=== PATIENT | male | born 1995 | race Caucasian/White ===

== ENCOUNTER 2023-09-16 18:19 | Emergency (ER) | payer SELFPAY ==
--- OUTSIDE RECORDS SUMMARY | 2023-09-16 18:22 | XMS REPORT | Continuity of Care Document ---
:1995 Author Organization [facility] t Address [address] [place] [address] [place] [id number] Care Team Providers Name Role Phone Alyse Davis DO Attending Clinician Louise Diaz MD Attending Clinician Payers Payer Name Policy Type Policy Number Effective Date Expiration Date S [facility] [id number] 2014 PPO 00:00:00 Problems Condition Condition Condition Status Onset Resolution Last Treating Co mments Source Name Details Category Date Date Treatment Clinician Date New onset New onset Disease Active Uni vers of [place] 10-22 [place] [address] [place] [address] Allergies, Adverse Reactions, Alerts Allergy Allergy Status Severity Reaction(s) Onset Inactive Treating Comm ents Source Name Type Date Date Clinician NO KNOWN Drug Active Univers ALLERGIE Class ity of S [facility] Social History Social Habit Start Date Stop Date Quantity Comments Source History of Cigarette Smoker Universi ty of tobacco use [facility] Exposure to Yes University of SARS-CoV-2 [facility] (event) [place] Alcohol intake 2018-10-28 2018-10-28 Current drinker Unive rsity of 00:00:00 00:00:00 of alcohol [facility] (finding) [place] Tobacco use and 2018-10-28 2018-10-28 Current user Univers ity of exposure 00:00:00 00:00:00 [facility] Sex [birth year] Universit y of 00:00:00 00:00:00 [facility] Smoking Status Start Date Stop Date Source Current every day smoker 2018-10-28 00:00:00 Uni versity of [facility] Medications Ordered Filled Start Stop Current Ordering Indication Dosage Frequency Signature Comments Components Source Medication Medication Date Date Medication? Clinician (SIG) Name Name calcium 2020- No 500mg 500 mg, Unive rs carbonate 06-03 Oral, ity of (OSCAL-500) 23:00: 22:06 [place] 500 [place] :00 dose, Sat Medi gerber mg 06/03/21 at Branch 1800, MISAEL magnesium 2020- No 2g 2 g, IV Univ ers sulfate in 06-03 Piggyback, it y of water 2 23:00: 23:43 ONCE, 1 [place] gram/50 mL 00 :00 dose, Sat Medi gerber (4 %) 06/03/21 at Branch infusion 2 1800, g Routine ketorolac 2020- No 15mg 15 mg, Unive rs (TORADOL) 06-03 Slow IV ity of injection 21:45: 20:37 Push, [place] 15 mg 00 :00 ONCE, 1 Medical dose, Sat Branch 06/03/21 at 1645, MISAEL
Fa culty member approving Restricted medication : ALYSE DAVIS LORazepam 2020- No 1mg 1 mg, Slow U nivers (ATIVAN) 06-03 IV Push, ity of injection 1 21:30: 20:37 [place]CE[place] 1 [place] mg 00 :[place] dose, Sat Medical 06/03/21 at Branch 1630, STAT ibuprofen Yes [id number] 800mg Take 1 Univers 800 mg 1-15 [id number] tablet by ity of tablet 00:00: mouth [place] 00 every 6 Medical (six) Branch hours as needed (pain). acetaminoph Yes [id number] 1{tbl} Take 1 Univers en-codeine 1-15 [id number] tablet by it y of 300-30 mg 00:00: mouth [place] tablet 00 every 4 Medical (four) Branch hours as needed (pain). ibuprofen Yes [id number] 800mg Take 1 Univers 800 mg 1-15 [id number] tablet by ity of tablet 00:00: mouth [place] 00 every 6 Medical (six) Branch hours as needed (pain). acetaminoph Yes [id number] 1{tbl} Take 1 Univers en-codeine 1-15 [id number] tablet by it y of 300-30 mg 00:00: mouth [place] tablet 00 every 4 Medical (four) Branch hours as needed (pain). AMITRIPTYLI Yes [id number] 10mg TAKE 1 Univers [place] 10 mg 8-06 TABLET BY ity of tablet 00:00: MOUTH AT [place] 00 BEDTIME. Medical Branch AMITRIPTYLI Yes [id number] 10mg TAKE 1 Univers [place] 10 mg 8-06 TABLET BY ity of tablet 00:00: MOUTH AT [place] 00 BEDTIME. [facility] Vital Signs Vital Name Observation Time Observation Value Comments Source Systolic blood 2021-06-03 23:43:05 118 mm[Hg] Univer sity of pressure [facility] Diastolic blood 2021-06-03 23:43:05 82 mm[facility]Hg] [facility] 2021-06-03 23:43:05 65 /min [facility] Respiratory rate 2021-06-03 23:43:05 16 /min [facility] Oxygen saturation in 2021-06-03 23:43:05 100 /min [facility] Arterial blood by [facility] [place] [facility] Pulse oximetry [place] Body temperature 2021-06-03 19:57:00 36.94 [facility] Body weight 2021-06-03 19:57:00 68.04 kg [facility] BMI 2021-06-03 19:57:00 22.15 kg/m2 [facility] Procedures Procedure Date / Time Performed Performing Clinician Sourc e XR CHEST 2 VW 2021-06-03 20:29:52 Alyse Davis [facility] CONSENT/REFUSAL FOR 2021-06-03 20:02:19 [facility] AND Name [facility] Branch TREATMENT NOTICE OF PRIVACY 2021-06-03 20:01:57 Doctor Unassigned, No Univ [facility] PRACTICES Name Medical [place] Encounters Start End Encounter Admission Attending Care Care Encounter Source Date/Time Date/Time Type Type Clinicians Facility Department ID 2021-08-14 Emergency [facility] [id number] Univers 17:09:23 ity of [facility] 2021-08-11 Emergency [facility] [id number] Univers 08:49:29 it of [facility] 2021-06-03 2021-06-03 Emergency Susan, [facility] [id number] Univers 14:58:00 18:50:00 Alyse Reese [id number] i ty of [place] [id number] [facility] [id number] [place] [id number] Branch 2020-05-08 2020-05-08 Emergency Emily, [facility] [id number] Univers 01:02:02 01:05:00 Louise Reese [id number] ity of [place] [id number] [facility] [id number] [place] [id number] Branch Results Test Description Test Time Test Comments Results Result Sour e Comments XR CHEST 2 VW 2021-05-15 No evidence of acute University of cardiopulmonary [place] Med ical 22:01:45 disease. Preliminary Bran ch Report Dictated by Resident: Franki Landaverde MD., have reviewed this study and agree withthe above report.EXAM: XR CHEST 2 06/03/2021 3:21 PM HISTORY: 26 years-old Male with sob, cp COMPARISON: CR,09/08/2015 TECHNIQUE: PA and lateral chest radiograph. FINDINGS: The lungs are hyperinflated but clear. There is no focal consolidation,pleural effusion or pneumothorax. The cardiomediastinal silhouette is normal in size. No acute osseous abnormality. [facility], Radiant Results Inft User - 06/03/2021 5:02 PM CDT EXAM: XR CHEST 2 06/03/2021 3:21 PMHISTORY: 26 years-old Male with sob, cp COMPARISON: CR,09/08/2015 TECHNIQUE: PA and lateral chest radiograph.FINDINGS:T he lungs are hyperinflated but clear. There is no focal consolidation,pleural effusion or pneumothorax.The cardiomediastinal silhouette is normal in size.No acute osseous abnormality.IMPRESSIO NNo evidence of acute cardiopulmonary disease.Preliminary Report Dictated by Resident: Franki Levi MD., have reviewed this study and agree withthe above report.
--- NOTE | 2023-09-16 19:26 | ER ---
Nurse's Notes [facility] Name: Nitin Block Age: 28 yrs Sex: Male : 1995 Arrival Date: 09/16/2023 Time: 18:19 Bed Waiting Private MD: Diagnosis: Presentation: 09/16 19:24 Note pt left prior to triage. provider notified. lg3 ED Course: 18:21 Patient arrived in ED. mg5 18:44 Kavitha Messina FNP-C [facility] snw 18:44 Jim Ovalle MD is Attending Physician. snw Administered Medications: No medications were administered Outcome: 19:25 Patient left the ED. lg3 19:37 Patient left the ED. snw Signatures: Kavitha Messina FNP-C FNP-Csnw Renata Rdz, RN RN lg3 Otilia Han mg5
[2023-09-16 19:34] LABS: SARS-CoV-2 Antigen Rapid Res Negative (Negative)
--- NOTE | 2023-09-16 19:38 | EDPHYS ---
Physician Documentation [facility] Name: Nitin Block Age: 28 yrs Sex: Male : 1995 Arrival Date: 09/16/2023 Time: 18:19 Bed Waiting Private MD: ED Physician MDM: 09/16 19:37 Medical screening is not applicable. snw 09/16 18:41 Order name: SARS RAPID; Complete Time: 19:37 sp3 09/16 18:41 Order name: Flu; Complete Time: 19:37 sp3 Administered Medications: No medications were administered Disposition Summary: 09/16/23 19:25 Eloped Notes: Disposition: Before Triage lg3 Reason: unknown lg3 Signatures: Dispatcher [employer] EDKavitha Anderson FNP-C FNP-Shaheenw Renata Rdz, RN RN lg3
== END 2023-09-16 19:37 | disposition left against medical advice (07) ==
LOC: ER 18:19
DX: Z53.21 Procedure and treatment not carried out due to patient leaving prior to being seen by health care provider (principal); Z11.52 Encounter for screening for COVID-19
CPT/HCPCS: 36415; 87804; 87811